=== PATIENT | female | born 1980 | race Caucasian/White ===

== ENCOUNTER 2019-08-11 07:34 | Inpatient (IN) ==
[2019-08-11] MEDS ORDERED: OXYTOCIN 30 UNITS/500 ML BAG IV PRN (08:05)
[2019-08-11] MEDS ORDERED: DINOPROSTONE 10 MG INSERT PV ONE (08:05)
[2019-08-11 08:26] LABS: Hematocrit (blood only) 35.5 % (37-47); Hemoglobin 11.9 g/dL (12.0-16.0); Mean Corpuscular Hemoglobin 28.7 pg (25-34); Mean Corpuscular Volume 85.5 fL (80-100); Mean Platelet Volume 10.8 fL (7.4-10.4); Platelet Count 218 K/uL (130-400); RDW Coefficient of Variation 14.2 % (11.5-14.5); RDW Standard Deviation 43.7 fL (36.4-46.3); Red Blood Count 4.15 M/uL (4.2-5.4); White Blood Count 10.87 K/uL (4.8-10.8)
[2019-08-11 08:31] LABS: Mean Corpuscular Hgb Conc 33.5 g/dL (32-36)
[2019-08-11] MEDS ORDERED: FLUCONAZOLE 50 MG TAB PO STA (08:47)
--- NOTE | 2019-08-11 08:47 | History & Physical Report ---
Date of Service August 11, 2019 Assessment & Plan (1) Post-term , 40-42 weeks of gestation: (2) Large for dates affecting management of mother: 39 yo at 40.3 wks, IOL for postdates VSS Afebrile Polyhydramnios and LGA, [place], 3900+ gr EFW at 37 weeks FS at home WNL, normal 3 Hour OGTTat 28 weeks Plan to check EFW this morning and decide Discussed risks of shoulder dystocia with larger fetus, like brachial plexus injury, clavicle fracture, asphyxia/ hypoxia even Discussed ACOG recommendations of elective Csection with GDM ad EFW of 4500 gr and 5000 gr with no GDM Discussed limitations of US for EFW, 10 % error rate (more or less) estimating weight She understands all and will decide after US for EFW All questions were answered (3) Polyhydramnios affecting in third trimester: History of Present Illness Chief Complaint: induction Primary Care Provider: He Kelly MD Patient is a 39 yo at 40.3 wks who is here for scheduled IOL She has no complaints No ctxs/ LOF/VB/ GONZALEZ/ Change in vision/ RUQ or epigastric pain +FM Her has been complicated by 1) AMA: Panaroma low risk 2) Polyhydramnios and LGA at 37 weeks, EFW at 95 th %ile, 3900+ gr 2) Migraine Allergies Allergy/AdvReac Type Severity Reaction Status Date / Time tetracycline Allergy Intermediate Rash Verified 08/11/19 07:49 Home Medications Home Medications Medication Instructions Recorded Confirmed Type 1 tab PO DAILY 08/02/19 08/11/19 History iron 1 tab PO DAILY 08/02/19 08/11/19 History Patient History Medical History Hx of migraines (~08/09/14) Surgical History H/O wisdom tooth extraction (~09/16/00) Family History Father Stroke Brother Non-Hodgkin lymphoma Social History Preferred Language: Citizen Of [place] Communication Ability: Effective Feed Management Advisor Required: No Beliefs That Will Affect Care: None marital status: Single Current Living Situation: Family Current Living Situation Comment: Lives with daughter and Dean jacobs Other Information That Helps Us Care for You: No Feels Safe at Home: Yes Safety Concerns: Feels Safe At This Time Smoking Status: Never smoker Do You Dip or Chew Tobacco: No ; Second Hand Exposure: No ; Tobacco Cessation Education Requested by Patient: No Hx Alcohol Use: No Hx Substance Use: No OB History in 2004, 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
[2019-08-11] MEDS ORDERED: CALCIUM CARBONATE 500 MG CHEWABLE TAB PO PRN (08:57)
--- NOTE | 2019-08-11 09:38 | Obstetrical Progress Note ---
Date of Service August 11, 2019 Assessment & Plan Admission and Anticipated Discharge Date Admission Date: August 11, 2019 Subjective Patient is back from US EFW 4119 gr, 9 lb 1 oz Discussed above and risk of shoulder dystocia one more time ( see H&P) and risks of Csection which is major surgery After discussion with her and her they decided for trial of vaginal delivery She plans to have epidural for pain Cervidil is placed in posterior fornix and discussed what to expect Continue to monitor Results & Data ([facility]) Vital Signs (Past 12 Hours) Vital Signs Temp Pulse Resp BP 08/11/19 09:28 75 121/69 08/11/19 08:03 36.8 C 86 20 119/72 08/11/19 07:40 86 119/72
[2019-08-11] MEDS ORDERED: ONDANSETRON INJ 2 MG/ML 2 ML VIAL IV PRN ×3 (09:39→21:44)
--- NOTE | 2019-08-11 10:27 | Ultrasound Report ---
ULTRASOUND LIMITED CLINICAL HISTORY: Large for dates. COMPARISON STUDY: No priors. FINDINGS: Real-time, grayscale, and color Doppler sonography of the fetus and gravid uterus is perfor med. There is a single live uterine gestation with an estimated heart rate of 163 beats per minute. P ositioning is cephalic. The amniotic fluid index measures 15 cm. The largest pocket of fluid measures 6.9 cm. Abdominal circumference measures 36.92 cm, corresponding to an estimated age of 40 weeks 6 days. The biparietal diameter measures 9.70 cm, corresponding to an estimated age of 39 weeks 5 days. Head circumference measures 34.73 cm, corresponding to an estimated age of 40 weeks 2 days. Femoral length measures 7.79 cm, corresponding to an estimated age of 39 weeks 6 day. Overall estimated age is 39 weeks 6 days +/-1 week. Estimated weight is 4119 g +/-618 g. IMPRESSION: 1. There is a single live injury gestation as above with an estimated age of 39 weeks 6 days. 2. Note that this does not constitute a dedicated anatomic scan. Dictated: 08/11/2019 9:19 AM Transcribed: 08/11/2019 10:10 AM Ana Rosa [id number] [email or web address] Electronically signed by: Danny Bond M.D. 08/11/2019 10:25 AM
[2019-08-11] MEDS: LACTATED RINGER'S 1,000 ML IV PRN ×2 (13:24→17:15)
[2019-08-11] MEDS: BUTORPHANOL TARTRATE 1 MG/ML VIAL IV PRN ×2 (13:28→16:01)
[2019-08-11] MEDS ORDERED: ePHEDrine sulfate 50 MG/ML AMP ONE ×2 (16:16→21:34)
[2019-08-11] MEDS ORDERED: fentaNYL citrate 100 MCG/2 ML VIAL ONE (16:16)
[2019-08-11] MEDS ORDERED: BUPIVACAINE 0.25% 30 ML VIAL ONE (16:16)
[2019-08-11] MEDS ORDERED: fentaNYL 2MCG/ML ROPIV 1.25MG/ML 100 ML BAG EPI ONE (16:17)
--- NOTE | 2019-08-11 16:21 | Obstetrical Progress Note ---
Date of Service August 11, 2019 Assessment & Plan Admission and Anticipated Discharge Date Admission Date: August 11, 2019 Subjective Patient is reevaluated She has been painful for the last 2 hours, received Stadol but not much help Ctxs q 3 min VSS Afebrile VS; 4-5 cm/ 80%/ -2, SROM'ed, meconium stained fluid, Cervidil is removed FHR 140's with decreased variability ( after Stadol), accels with VE and moderate variability, no decels [place] ctxs 1-3min Plan epidural for pain, monitor closely Results & Data ([facility]) Vital Signs (Past 12 Hours) Vital Signs Temp Pulse Resp BP 08/11/19 16:07 94 H 20 121/70 08/11/19 15:30 20 08/11/19 15:01 83 122/86 08/11/19 15:00 36.5 C 20 08/11/19 12:52 81 124/62 08/11/19 09:28 75 20 121/69 08/11/19 08:03 36.8 C 86 20 119/72 08/11/19 07:40 36.7 C 86 16 119/72
--- NOTE | 2019-08-11 17:44 | Anesthesiology Consultation ---
Date of Service August 11, 2019 Assessment & Plan Chart Review Chart Review: Acceptable Risk for Labor Epidural Consults Requested none History Height/Weight Height: 5 ft 2 in Weight: 80.739 kg Allergies Allergy/AdvReac Type Severity Reaction Status Date / Time tetracycline Allergy Intermediate Rash Verified 08/11/19 07:49 Medications Home Medications Medication Instructions Recorded Confirmed Last Taken 1 tab PO DAILY 08/02/19 08/11/19 08/10/19 12:00 iron 1 tab PO DAILY 08/02/19 08/11/19 08/09/19 12:00 Active Medications Generic Name Dose Route Start Last Admin Trade Name Freq PRN Reason Stop Dose Admin Butorphanol Tartrate 1 mg 08/11/19 09:38 08/11/19 16:01 Stadol IV 09/10/19 09:37 1 mg Q3HWA PRN Administration Pain Lactated Ringer's 1,000 mls @ 150 mls/hr 08/11/19 08:05 08/11/19 17:31 Lr IV 08/13/19 08:04 150 mls/hr .[id number] PRN Infusion L&D Protocol Protocol Past Medical History Medical History Hx of migraines (~08/09/14) Past Family History Family History Father Stroke Brother Non-Hodgkin lymphoma Past Surgical History Surgical History H/O wisdom tooth extraction (~09/16/00) Social History Smoking Status: Never smoker Do You Dip or Chew Tobacco: No Hx Alcohol Use: No Hx Substance Use: No substance use type: does not use Physical Exam Vital Signs Last Vital Signs Temp 36.4 C L 08/11/19 17:00 Pulse 108 H 08/11/19 17:42 Resp 20 08/11/19 17:35 BP 137/68 08/11/19 17:42 Pulse Ox 100 08/11/19 17:39 Testing Laboratory Results 08/11/19 08:14 08/11/19 08:35 POC Glucose 80
[2019-08-11] MEDS ORDERED: fentaNYL 2MCG/ML ROPIV 1.25MG/ML 100 ML BAG EPI PRN (17:45)
[2019-08-11] MEDS ORDERED: NALOXONE HCL 0.4 MG/1 ML VIAL/CARP IV PRN ×2 (17:45→21:44)
[2019-08-11] MEDS ORDERED: NALOXONE HCL 1 MG in SODIUM CHLORIDE 0.9% 1000ML 1,000 ML IV PRN ×2 (17:45→21:44)
[2019-08-11] MEDS ORDERED: DiphenhydrAMINE HCL 50 MG/ML VIAL IV PRN ×2 (17:45→21:44)
[2019-08-11] MEDS ORDERED: ePHEDrine sulfate 50 MG/ML AMP IV PRN ×2 (17:45→21:44)
[2019-08-11] MEDS ORDERED: NALBUPHINE HCL INJ 10 MG/ML AMP IV PRN ×2 (17:45→21:44)
--- NOTE | 2019-08-11 18:17 | Obstetrical Progress Note ---
Date of Service August 11, 2019 Assessment & Plan Admission and Anticipated Discharge Date Admission Date: August 11, 2019 Subjective Patient is reevaluated She received epidural, pain is better but feels pressure VE; 8/ 90%/ 0 FHR early decel to 100's back up to 130's, good variability and accels Continue to monitor Anticipate Results & Data ([facility]) Vital Signs (Past 12 Hours) Vital Signs Temp Pulse Resp BP Pulse Ox 08/11/19 18:09 106 H 100 08/11/19 18:04 100 H 100 08/11/19 17:59 107 H 100 08/11/19 17:57 120 H 149/72 H 08/11/19 17:54 113 H 100 08/11/19 17:49 118 H 100 08/11/19 17:44 114 H 100 08/11/19 17:42 108 H 137/68 08/11/19 17:40 104 H 133/69 08/11/19 17:39 110 H 100 08/11/19 17:38 131/76 08/11/19 17:36 107 H 133/70 08/11/19 17:35 20 08/11/19 17:34 113 H 136/64 100 08/11/19 17:32 103 H 138/68 08/11/19 17:31 100 H 126/69 08/11/19 17:29 98 H 93 08/11/19 17:28 101 H 162/77 H 08/11/19 17:24 101 H 99 08/11/19 17:19 98 H 100 08/11/19 17:14 97 H 99 08/11/19 17:09 89 98 08/11/19 17:04 70 98 08/11/19 17:00 36.4 C L 22 08/11/19 16:59 83 98 08/11/19 16:54 101 H 100 08/11/19 16:49 100 H 100 08/11/19 16:44 98 H 100 08/11/19 16:39 91 H 99 08/11/19 16:34 78 98 08/11/19 16:30 22 08/11/19 16:29 80 99 08/11/19 16:24 76 98 08/11/19 16:07 94 H 20 121/70 08/11/19 15:30 20 08/11/19 15:01 83 122/86 08/11/19 15:00 36.5 C 20 08/11/19 12:52 81 124/62 08/11/19 09:28 75 20 121/69 08/11/19 08:03 36.8 C 86 20 119/72 08/11/19 07:40 36.7 C 86 16 119/72
--- NOTE | 2019-08-11 19:50 | Obstetrical Progress Note ---
Date of Service August 11, 2019 Assessment & Plan Admission and Anticipated Discharge Date Admission Date: August 11, 2019 Subjective Patient felt pressure and wanted to push VE; 10/ head at 0 station, posterior fontanelle at 2 o'clock position, ANA No descent with trial push Patient is tired, pushed on epidural button and wants to rest for a little bit and then start pushing FHR 140's with good variability, occasional early decels with ctxs with quick spontaneous recovery Continue to monitor closely Results & Data ([facility]) Vital Signs (Past 12 Hours) Vital Signs Temp Pulse Resp BP Pulse Ox 08/11/19 19:44 112 H 98 08/11/19 19:39 127 H 100 08/11/19 19:34 115 H 99 08/11/19 19:29 113 H 99 08/11/19 19:28 114 H 129/85 08/11/19 19:24 130 H 98 08/11/19 19:19 127 H 98 08/11/19 19:14 114 H 98 08/11/19 19:13 114 H 137/82 08/11/19 19:09 132 H 98 08/11/19 19:04 120 H 98 08/11/19 19:00 20 08/11/19 18:59 125 H 99 08/11/19 18:58 109 H 133/81 08/11/19 18:54 140 H 97 08/11/19 18:49 134 H 99 08/11/19 18:44 110 H 136/82 100 08/11/19 18:39 139 H 100 08/11/19 18:34 110 H 100 08/11/19 18:30 20 08/11/19 18:29 95 H 99 08/11/19 18:28 121 H 134/87 08/11/19 18:24 105 H 100 08/11/19 18:19 111 H 100 08/11/19 18:14 115 H 100 08/11/19 18:09 106 H 100 08/11/19 18:04 100 H 100 08/11/19 17:59 107 H 100 08/11/19 17:57 120 H 149/72 H 08/11/19 17:54 113 H 100 08/11/19 17:49 118 H 100 08/11/19 17:44 114 H 100 08/11/19 17:42 108 H 137/68 08/11/19 17:40 104 H 133/69 08/11/19 17:39 110 H 100 08/11/19 17:38 131/76 08/11/19 17:36 107 H 133/70 08/11/19 17:35 20 08/11/19 17:34 113 H 136/64 100 08/11/19 17:32 103 H 138/68 08/11/19 17:31 100 H 126/69 08/11/19 17:29 98 H 93 08/11/19 17:28 101 H 162/77 H 08/11/19 17:24 101 H 99 08/11/19 17:19 98 H 100 08/11/19 17:14 97 H 99 08/11/19 17:09 89 98 08/11/19 17:04 70 98 08/11/19 17:00 36.4 C L 22 08/11/19 16:59 83 98 08/11/19 16:54 101 H 100 08/11/19 16:49 100 H 100 08/11/19 16:44 98 H 100 08/11/19 16:39 91 H 99 08/11/19 16:34 78 98 08/11/19 16:30 22 08/11/19 16:29 80 99 08/11/19 16:24 76 98 08/11/19 16:07 94 H 20 121/70 08/11/19 15:30 20 08/11/19 15:01 83 122/86 08/11/19 15:00 36.5 C 20 08/11/19 12:52 81 124/62 08/11/19 09:28 75 20 121/69 08/11/19 08:03 36.8 C 86 20 119/72
[2019-08-11] MEDS ORDERED: CEFAZOLIN 2000MG 2,000 MG/15 ML SYR IV SCH (20:00)
--- NOTE | 2019-08-11 20:10 | Obstetrical Progress Note ---
Date of Service August 11, 2019 Assessment & Plan Admission and Anticipated Discharge Date Admission Date: August 11, 2019 Subjective FHR had deceleration to 90's for 4 minutes with heavy VB Long ctxs lasted for 2 minutes and then another decel after next ctxs VE unchanged with dark red bleeding Suspected abruption, presenting part high and suspected macrosomia Recommended emergent delivery with Csection She agreed Understands it is a major surgery with risks and signed an informed consent Results & Data ([facility]) Vital Signs (Past 12 Hours) Vital Signs Temp Pulse Resp BP Pulse Ox 08/11/19 20:04 156 H 100 08/11/19 19:59 157 H 76 L 08/11/19 19:58 137 H 130/78 08/11/19 19:54 147 H 100 08/11/19 19:49 116 H 99 08/11/19 19:44 112 H 98 08/11/19 19:39 127 H 100 08/11/19 19:34 115 H 99 08/11/19 19:29 113 H 99 08/11/19 19:28 114 H 129/85 08/11/19 19:24 130 H 98 08/11/19 19:19 127 H 98 08/11/19 19:14 114 H 98 08/11/19 19:13 114 H 137/82 08/11/19 19:09 132 H 98 08/11/19 19:04 120 H 98 08/11/19 19:00 20 08/11/19 18:59 125 H 99 08/11/19 18:58 109 H 133/81 08/11/19 18:54 140 H 97 08/11/19 18:49 134 H 99 08/11/19 18:44 110 H 136/82 100 08/11/19 18:39 139 H 100 08/11/19 18:34 110 H 100 08/11/19 18:30 20 08/11/19 18:29 95 H 99 08/11/19 18:28 121 H 134/87 08/11/19 18:24 105 H 100 08/11/19 18:19 111 H 100 08/11/19 18:14 115 H 100 08/11/19 18:09 106 H 100 08/11/19 18:04 100 H 100 08/11/19 17:59 107 H 100 08/11/19 17:57 120 H 149/72 H 08/11/19 17:54 113 H 100 05 17:49 118 H 100 08/11/19 17:44 114 H 100 08/11/19 17:42 108 H 137/68 08/11/19 17:40 104 H 133/69 08/11/19 17:39 110 H 100 08/11/19 17:38 131/76 08/11/19 17:36 107 H 133/70 08/11/19 17:35 20 08/11/19 17:34 113 H 136/64 100 08/11/19 17:32 103 H 138/68 08/11/19 17:31 100 H 126/69 08/11/19 17:29 98 H 93 08/11/19 17:28 101 H 162/77 H 08/11/19 17:24 101 H 99 08/11/19 17:19 98 H 100 08/11/19 17:14 97 H 99 08/11/19 17:09 89 98 08/11/19 17:04 70 98 08/11/19 17:00 36.4 C L 22 08/11/19 16:59 83 98 08/11/19 16:54 101 H 100 08/11/19 16:49 100 H 100 08/11/19 16:44 98 H 100 08/11/19 16:39 91 H 99 08/11/19 16:34 78 98 08/11/19 16:30 22 08/11/19 16:29 80 99 08/11/19 16:24 76 98 08/11/19 16:07 94 H 20 121/70 08/11/19 15:30 20 08/11/19 15:01 83 122/86 05 15:00 36.5 C 20 08/11/19 12:52 81 124/62 05 09:28 75 20 121/69
[2019-08-11] MEDS ORDERED: CITRIC ACID/SODIUM CITRATE 15 ML UDC ONE (20:12)
[2019-08-11] MEDS ORDERED: LACTATED RINGER'S 1,000 ML IV SCH (20:15)
[2019-08-11 20:26] LABS: Hematocrit (blood only) 36.5 % (37-47); Hemoglobin 12.1 g/dL (12.0-16.0); Mean Corpuscular Hemoglobin 28.8 pg (25-34); Mean Corpuscular Hgb Conc 33.2 g/dL (32-36); Mean Corpuscular Volume 86.9 fL (80-100); Mean Platelet Volume 11.1 fL (7.4-10.4); Platelet Count 243 K/uL (130-400); RDW Coefficient of Variation 14.3 % (11.5-14.5); RDW Standard Deviation 44.8 fL (36.4-46.3); White Blood Count 24.68 K/uL (4.8-10.8)
[2019-08-11 20:44] LABS: Basophils # (auto) 0.03 K/uL (0-0.2); Basophils % (auto) 0.1 %; Immature Granulocytes # (auto) 0.28 K/uL (0.00-0.02); Immature Granulocytes % (auto) 1.1 %; Lymphocytes # (auto) 1.21 K/uL (1.2-3.4); Lymphocytes % (auto) 4.9 %; Monocytes # (auto) 1.61 K/uL (0.11-0.59); Monocytes % (auto) 6.5 %; Neutrophils # (auto) 21.55 K/uL (1.4-6.5); Neutrophils % (auto) 87.4 %
[2019-08-11 20:54] LABS: Fibrinogen 427 mg/dl (184-400); INR 0.9 (0.9-1.1); Partial Thromboplastin Time 26.8 Seconds (21.0-31.0)
[2019-08-11] MEDS ORDERED: TERBUTALINE SULFATE 1 MG/ML VIAL ONE (20:54)
[2019-08-11] MEDS ORDERED: CEFAZOLIN 250 MG/ML 1 GM VIAL ONE (21:13)
[2019-08-11] MEDS ORDERED: OXYTOCIN 10 UNITS/ML VIAL ONE (21:13)
[2019-08-11] MEDS ORDERED: LIDOCAINE/EPINEPHRINE 2% 1:200,000 20 ML SDV ONE (21:13)
[2019-08-11] MEDS ORDERED: PHENYLEPHRINE 100MCG/ML 5ML SYR ONE (21:13)
[2019-08-11] MEDS ORDERED: METHYLERGONOVINE MALEATE 0.2 MG/ML AMP ONE (21:14)
[2019-08-11] MEDS ORDERED: MoRPHine SULFATE PF 1 MG/ML 10 ML AMP/VIAL ONE (21:14)
[2019-08-11] MEDS ORDERED: ONDANSETRON INJ 2 MG/ML 2 ML VIAL ONE (21:14)
[2019-08-11] MEDS ORDERED: MAGNESIUM HYDROXIDE SUSP 30 ML UDC PO PRN (21:21)
[2019-08-11] MEDS ORDERED: HYDROCORTISONE ACETATE 25 MG SUPP PR PRN (21:21)
[2019-08-11] MEDS ORDERED: BENZOCAINE 20% AER SPR 82.5 GM CAN EXT PRN (21:21)
[2019-08-11] MEDS ORDERED: SUPERCREAM 0.870% 15 GM JAR EXT PRN (21:21)
[2019-08-11] MEDS ORDERED: SENNA 8.6 MG TAB PO PRN (21:21)
[2019-08-11] MEDS ORDERED: DIPHTHERIA/TETANUS/PERTUSSIS 0.5 ML SYR/VIAL IM ONE (21:21)
[2019-08-11] MEDS ORDERED: OXYTOCIN 40 UNITS in LACTATED RINGER'S 1,000 ML IV SCH (21:30)
--- NOTE | 2019-08-11 21:37 | Anesthesia Procedure Note ---
Date of Service August 11, 2019 Anesthesia Post Epidural Note Vital Signs Vital Signs: Temp Pulse Resp BP Pulse Ox 36.4 C L 133 H 20 136/56 L 97 08/11/19 17:00 08/11/19 21:32 08/11/19 19:00 08/11/19 21:16 08/11/19 21:32 Notes Mental Status: alert / awake / arousable Nausea / Vomiting: adequately controlled Pain: adequately controlled Airway Patency, RR, SpO2: stable & adequate BP & HR: stable & adequate Hydration State: stable & adequate Neuraxial Anesthesia: was administered and sensory block is resolving Anesthetic Complications: no major complications apparent and Pt Satisfied with anesthetic care Epidural: Removed without complications and With tip intact
--- NOTE | 2019-08-11 21:43 | Post Operative Brief Note ---
Immediate Post Op Note v1 Date of Surgery August 11, 2019 Pre & Post Diagnosis Operation Date: 08/11/19 20:00 Pre-Op Diagnosis: Active Vaginal Bleeding, Possible Abruption, Suspected Macrosomia Post-Op Diagnosis: Active Vaginal Bleeding, Possible Abruption, Suspected Macrosomia I identified the patient and participated in the time-out.: Yes Procedure Operation Date: 08/11/19 20:00 Actual Procedures p Section in LD delivery of live female child at 2027 - Samuel Muro MD Surgeon Samuel Mantilla MD Batch Unit Treater Dr Crabtree Estimated Blood Loss 800 Findings Consistent with Post-Op Diagnosis Drains Hurst Catheter (150 ml) Anesthesia Type General/Epidural Complications none Disposition Accompanied Patient To Recovery: Yes Disposition: L&D
--- NOTE | 2019-08-11 21:43 | Anesthesiology Progress Note ---
Date of Service August 11, 2019 Anesthesia Post Procedure Vital Signs Vital Signs: Temp Pulse Resp BP Pulse Ox 08/11/19 21:37 124 H 118/60 98 08/11/19 21:32 133 H 97 08/11/19 21:27 137 H 99 08/11/19 21:22 133 H 98 08/11/19 21:17 126 H 98 08/11/19 21:16 120 H 136/56 L 08/11/19 21:12 124 H 98 08/11/19 21:06 136 H 99 08/11/19 21:05 126 H 124/80 08/11/19 20:10 148 H 99 08/11/19 20:04 156 H 100 08/11/19 19:59 157 H 76 L 08/11/19 19:58 137 H 130/78 08/11/19 19:54 147 H 100 08/11/19 19:49 116 H 99 08/11/19 19:44 112 H 98 08/11/19 19:39 127 H 100 08/11/19 19:34 115 H 99 08/11/19 19:29 113 H 99 08/11/19 19:28 114 H 129/85 08/11/19 19:24 130 H 98 08/11/19 19:19 127 H 98 08/11/19 19:14 114 H 98 08/11/19 19:13 114 H 137/82 08/11/19 19:09 132 H 98 08/11/19 19:04 120 H 98 08/11/19 19:00 20 08/11/19 18:59 125 H 99 08/11/19 18:58 109 H 133/81 08/11/19 18:54 140 H 97 08/11/19 18:49 134 H 99 08/11/19 18:44 110 H 136/82 100 08/11/19 18:39 139 H 100 08/11/19 18:34 110 H 100 08/11/19 18:30 20 08/11/19 18:29 95 H 99 08/11/19 18:28 121 H 134/87 08/11/19 18:24 105 H 100 08/11/19 18:19 111 H 100 08/11/19 18:14 115 H 100 08/11/19 18:09 106 H 100 08/11/19 18:04 100 H 100 08/11/19 17:59 107 H 100 08/11/19 17:57 120 H 149/72 H 08/11/19 17:54 113 H 100 08/11/19 17:49 118 H 100 08/11/19 17:44 114 H 100 08/11/19 17:42 108 H 137/68 08/11/19 17:40 104 H 133/69 08/11/19 17:39 110 H 100 08/11/19 17:38 131/76 08/11/19 17:36 107 H 133/70 08/11/19 17:35 20 08/11/19 17:34 113 H 136/64 100 08/11/19 17:32 103 H 138/68 08/11/19 17:31 100 H 126/69 08/11/19 17:29 98 H 93 08/11/19 17:28 101 H 162/77 H 08/11/19 17:24 101 H 99 08/11/19 17:19 98 H 100 08/11/19 17:14 97 H 99 08/11/19 17:09 89 98 08/11/19 17:04 70 98 08/11/19 17:00 36.4 C L 22 08/11/19 16:59 83 98 08/11/19 16:54 101 H 100 08/11/19 16:49 100 H 100 08/11/19 16:44 98 H 100 08/11/19 16:39 91 H 99 08/11/19 16:34 78 98 08/11/19 16:30 22 08/11/19 16:29 80 99 08/11/19 16:24 76 98 08/11/19 16:07 94 H 20 121/70 08/11/19 15:30 20 08/11/19 15:01 83 122/86 08/11/19 15:00 36.5 C 20 08/11/19 12:52 81 124/62 08/11/19 09:28 75 20 121/69 08/11/19 08:03 36.8 C 86 20 119/72 08/11/19 07:40 36.7 C 86 16 119/72 Transfer of Care Handoff Completed per policy Notes Mental Status: alert / awake / arousable and participated in evaluation Patient Amnestic to Procedure: Yes Nausea / Vomiting: adequately controlled Pain: adequately controlled Airway Patency, RR, SpO2: stable & adequate BP & HR: stable & adequate Hydration State: stable & adequate Neuraxial Anesthesia: was administered and sensory block is resolving Anesthetic Complications: no major complications apparent
[2019-08-11] MEDS ORDERED: MEPERIDINE HCL 25 MG/ML CARP/VIAL IV PRN (21:44)
[2019-08-11] MEDS ORDERED: MoRPHine SULFATE PF 1 MG/ML 10 ML AMP/VIAL INT SPINAL ONE (21:44)
[2019-08-11] MEDS ORDERED: PROMETHAZINE HCL 25 MG in SODIUM CHLORIDE 0.9% 50 ML IV PRN (21:44)
[2019-08-11] MEDS ORDERED: MoRPHine SULFATE 2 MG/ML CARP IV PRN (21:44)
[2019-08-11] MEDS ORDERED: NALOXONE HCL 0.08 MG in SYRINGE 1.8 ML IV PRN (21:44)
[2019-08-11] MEDS ORDERED: LACTATED RINGER'S 500 ML IV PRN (21:44)
[2019-08-11] MEDS ORDERED: HYDROmorphone INJ 0.5 MG/0.5 ML SYR IV PRN (21:44)
[2019-08-11] MEDS ORDERED: NO NARCOTICS OR SEDATIVES SCH (21:45)
[2019-08-11] MEDS ORDERED: DC INTRASPINAL MORPHINE SCH (21:45)
[2019-08-11] MEDS ORDERED: SODIUM CHLORIDE 0.9% 1000ML 1,000 ML IV SCH (21:45)
[2019-08-11] MEDS ORDERED: KETOROLAC 30 MG/ML VIAL ONE (22:23)
[2019-08-11] MEDS ORDERED: TERBUTALINE SULFATE 1 MG/ML VIAL SQ ONE (22:29)
[2019-08-11] MEDS: KETOROLAC 30 MG/ML VIAL IV PRN (22:33)
[2019-08-11] MEDS ORDERED: OXYTOCIN 10 UNITS/ML VIAL IM ONE (22:41)
[2019-08-11] MEDS ORDERED: METHYLERGONOVINE MALEATE 0.2 MG/ML AMP IM STA (22:41)
--- NOTE | 2019-08-11 22:49 | Obstetrical Progress Note ---
Date of Service August 11, 2019 Assessment & Plan Admission and Anticipated Discharge Date Admission Date: August 11, 2019 Subjective Postop check Patient is seen and examined Feels better, no complaints Pain is under control with meds No CP/ SOB/ Dizziness/ N&V/ VB/ Leg pain Not OOB yet Tolerating clears Explained about the surgery and findings Vital Signs Temp Pulse Resp BP Pulse Ox 08/11/19 22:42 105 H 100 08/11/19 22:37 106 H 99 08/11/19 22:36 114 H 120/65 08/11/19 22:32 118 H 100 08/11/19 22:27 111 H 100 08/11/19 22:26 112 H 123/64 08/11/19 22:22 113 H 100 08/11/19 22:17 116 H 100 08/11/19 22:16 117 H 125/72 08/11/19 22:12 118 H 100 08/11/19 22:07 126 H 100 08/11/19 22:06 126 H 122/70 08/11/19 22:02 123 H 100 08/11/19 21:57 129 H 99 08/11/19 21:56 127 H 117/66 08/11/19 21:52 131 H 99 08/11/19 21:47 116 H 99 08/11/19 21:46 126 H 121/61 08/11/19 21:42 131 H 98 08/11/19 21:37 124 H 118/60 98 08/11/19 21:32 133 H 97 08/11/19 21:27 137 H 99 08/11/19 21:22 133 H 98 08/11/19 21:17 126 H 98 08/11/19 21:16 120 H 136/56 L 08/11/19 21:12 124 H 98 08/11/19 21:06 136 H 99 08/11/19 21:05 126 H 124/80 08/11/19 20:10 148 H 99 08/11/19 20:04 156 H 100 08/11/19 20:00 22 08/11/19 19:59 157 H 76 L 08/11/19 19:58 137 H 130/78 08/11/19 19:54 147 H 100 08/11/19 19:49 116 H 99 08/11/19 19:44 112 H 98 08/11/19 19:39 127 H 100 051420 19:34 115 H 99 05/1420 19:30 20 05 19:29 113 H 99 0520 19:28 114 H 129/85 0520 19:24 130 H 98 0520 19:19 127 H 98 0520 19:14 114 H 98 051420 19:13 114 H 137/82 05 19:09 132 H 98 08/11/19 19:04 120 H 98 05 19:00 20 05 18:59 125 H 99 05 18:58 109 H 133/81 05 18:54 140 H 97 05 18:49 134 H 99 05 18:44 110 H 136/82 100 08/11/19 18:39 139 H 100 05 18:34 110 H 100 05 18:30 20 08/11/19 18:29 95 H 99 05 18:28 121 H 134/87 05 18:24 105 H 100 05 18:19 111 H 100 05 18:14 115 H 100 05 18:09 106 H 100 05 18:04 100 H 100 05 17:59 107 H 100 08/11/19 17:57 120 H 149/72 H 05 17:54 113 H 100 05 17:49 118 H 100 05 17:44 114 H 100 05 17:42 108 H 137/68 0520 17:40 104 H 133/69 0520 17:39 110 H 100 05/1420 17:38 131/76 05/1420 17:36 107 H 133/70 0520 17:35 20 05 17:34 113 H 136/64 100 0520 17:32 103 H 138/68 051420 17:31 100 H 126/69 05/1420 17:29 98 H 93 051420 17:28 101 H 162/77 H 05 17:24 101 H 99 0520 17:19 98 H 100 08/11/19 17:14 97 H 99 08/11/19 17:09 89 98 08/11/19 17:04 70 98 08/11/19 17:00 36.4 C L 22 08/11/19 16:59 83 98 08/11/19 16:54 101 H 100 08/11/19 16:49 100 H 100 08/11/19 16:44 98 H 100 08/11/19 16:39 91 H 99 08/11/19 16:34 78 98 08/11/19 16:30 22 08/11/19 16:29 80 99 08/11/19 16:24 76 98 08/11/19 16:07 94 H 20 121/70 08/11/19 15:30 20 08/11/19 15:01 83 122/86 08/11/19 15:00 36.5 C 20 08/11/19 12:52 81 124/62 Pulse has been coming down Urine was blood tinged after surgery now clearing up, yellow Lab Results 08/11/19 08/11/19 08/11/19 Range/Units 08:14 08:14 08:35 WBC 10.87 H (4.8-10.8) K/uL RBC 4.15 L (4.2-5.4) M/uL Hgb 11.9 L (12.0-16.0) g/dL Hct 35.5 L (37-47) % MCV 85.5 (80-100) fL MCH 28.7 (25-34) pg MCHC 33.5 (32-36) g/dL RDW Std Deviation 43.7 (36.4-46.3) fL RDW Coeff of Kimberley 14.2 (11.5-14.5) % Plt Count 218 (130-400) K/uL MPV 10.8 H (7.4-10.4) fL Immature Gran % (Auto) % Neut % (Auto) % Lymph % (Auto) % [place] % (Auto) % Eos % (Auto) % Baso % (Auto) % Immature Gran # (Auto) (0.00-0.02) K/uL Neut # (Auto) (1.4-6.5) K/uL Lymph # (Auto) (1.2-3.4) K/uL [place] # (Auto) (0.11-0.59) K/uL Eos # (Auto) (0-0.5) K/uL Baso # (Auto) (0-0.2) K/uL PT (9.0-12.0) Seconds INR (0.9-1.1) APTT (21.0-31.0) Seconds PTT Ratio Fibrinogen (184-400) mg/dl POC Glucose 80 (70-99) mg/dl Hepatitis C Antibody Neg (Neg) 08/11/19 08/11/19 08/11/19 Range/Units 17:48 20:16 20:16 WBC 24.68 H D (4.8-10.8) K/uL RBC 4.20 (4.2-5.4) M/uL Hgb 12.1 (12.0-16.0) g/dL Hct 36.5 L (37-47) % MCV 86.9 (80-100) fL MCH 28.8 (25-34) pg MCHC 33.2 (32-36) g/dL RDW Std Deviation 44.8 (36.4-46.3) fL RDW Coeff of Kimberley 14.3 (11.5-14.5) % Plt Count 243 (130-400) K/uL MPV 11.1 H (7.4-10.4) fL Immature Gran % (Auto) 1.1 % Neut % (Auto) 87.4 % Lymph % (Auto) 4.9 % [place] % (Auto) 6.5 % Eos % (Auto) 0.0 % Baso % (Auto) 0.1 % Immature Gran # (Auto) 0.28 H (0.00-0.02) K/uL Neut # (Auto) 21.55 H (1.4-6.5) K/uL Lymph # (Auto) 1.21 (1.2-3.4) K/uL [place] # (Auto) 1.61 H (0.11-0.59) K/uL Eos # (Auto) 0.00 (0-0.5) K/uL Baso # (Auto) 0.03 (0-0.2) K/uL PT 10.0 (9.0-12.0) Seconds INR 0.9 (0.9-1.1) APTT 26.8 (21.0-31.0) Seconds PTT Ratio 1.0 Fibrinogen 427 H (184-400) mg/dl POC Glucose 105 H (70-99) mg/dl Hepatitis C Antibody (Neg) PE: General: Alert, orientedx3, NAD CVS: S1S2 RRR Lungs: CTAB Abd: soft, ND, BS+, fundus firm below U, Dressing C/D/I Minimal lochia Ext: NT, no edema, SCD's on AP: 39 yo female s/p Primary emergency Csection , pod#0 VSS Afebrile doing well Continue to monitor, postop care Results & Data ([facility]) Vital Signs (Past 12 Hours) Vital Signs Temp Pulse Resp BP Pulse Ox 08/11/19 22:42 105 H 100 08/11/19 22:37 106 H 99 08/11/19 22:36 114 H 120/65 08/11/19 22:32 118 H 100 08/11/19 22:27 111 H 100 08/11/19 22:26 112 H 123/64 08/11/19 22:22 113 H 100 08/11/19 22:17 116 H 100 08/11/19 22:16 117 H 125/72 08/11/19 22:12 118 H 100 08/11/19 22:07 126 H 100 08/11/19 22:06 126 H 122/70 08/11/19 22:02 123 H 100 08/11/19 21:57 129 H 99 08/11/19 21:56 127 H 117/66 08/11/19 21:52 131 H 99 08/11/19 21:47 116 H 99 08/11/19 21:46 126 H 121/61 08/11/19 21:42 131 H 98 08/11/19 21:37 124 H 118/60 98 08/11/19 21:32 133 H 97 08/11/19 21:27 137 H 99 08/11/19 21:22 133 H 98 08/11/19 21:17 126 H 98 08/11/19 21:16 120 H 136/56 L 08/11/19 21:12 124 H 98 08/11/19 21:06 136 H 99 08/11/19 21:05 126 H 124/80 08/11/19 20:10 148 H 99 08/11/19 20:04 156 H 100 05 20:00 22 08/11/19 19:59 157 H 76 L 08/11/19 19:58 137 H 130/78 08/11/19 19:54 147 H 100 08/11/19 19:49 116 H 99 08/11/19 19:44 112 H 98 08/11/19 19:39 127 H 100 08/11/19 19:34 115 H 99 08/11/19 19:30 20 08/11/19 19:29 113 H 99 08/11/19 19:28 114 H 129/85 08/11/19 19:24 130 H 98 08/11/19 19:19 127 H 98 08/11/19 19:14 114 H 98 08/11/19 19:13 114 H 137/82 08/11/19 19:09 132 H 98 08/11/19 19:04 120 H 98 08/11/19 19:00 20 08/11/19 18:59 125 H 99 08/11/19 18:58 109 H 133/81 08/11/19 18:54 140 H 97 08/11/19 18:49 134 H 99 08/11/19 18:44 110 H 136/82 100 08/11/19 18:39 139 H 100 08/11/19 18:34 110 H 100 08/11/19 18:30 20 08/11/19 18:29 95 H 99 08/11/19 18:28 121 H 134/87 08/11/19 18:24 105 H 100 08/11/19 18:19 111 H 100 08/11/19 18:14 115 H 100 08/11/19 18:09 106 H 100 08/11/19 18:04 100 H 100 08/11/19 17:59 107 H 100 08/11/19 17:57 120 H 149/72 H 05 17:54 113 H 100 05 17:49 118 H 100 05 17:44 114 H 100 05 17:42 108 H 137/68 05 17:40 104 H 133/69 05 17:39 110 H 100 05 17:38 131/76 05 17:36 107 H 133/70 05 17:35 20 08/11/19 17:34 113 H 136/64 100 08/11/19 17:32 103 H 138/68 08/11/19 17:31 100 H 126/69 08/11/19 17:29 98 H 93 08/11/19 17:28 101 H 162/77 H 08/11/19 17:24 101 H 99 08/11/19 17:19 98 H 100 08/11/19 17:14 97 H 99 08/11/19 17:09 89 98 08/11/19 17:04 70 98 08/11/19 17:00 36.4 C L 22 08/11/19 16:59 83 98 08/11/19 16:54 101 H 100 08/11/19 16:49 100 H 100 08/11/19 16:44 98 H 100 08/11/19 16:39 91 H 99 08/11/19 16:34 78 98 08/11/19 16:30 22 08/11/19 16:29 80 99 08/11/19 16:24 76 98 08/11/19 16:07 94 H 20 121/70 08/11/19 15:30 20 08/11/19 15:01 83 122/86 08/11/19 15:00 36.5 C 20 08/11/19 12:52 81 124/62
[2019-08-11 23:46] LABS: Appearance Urine Cloudy (Clear); Bilirubin Urine Negative (Negative); Blood Urine 3+ (Negative); Color Urine Yellow; Glucose Urine UA Negative (Negative); Ketones Urine 3+ (Negative); Leukocyte Esterase Urine Trace (Negative); Nitrite Urine Negative (Negative); Protein Urine 1+ (Negative); Specific Gravity Urine >= 1.030 (1.000-1.030); Urobilinogen Urine Negative (Negative); pH Urine 5.5 (4.5-7.5)
--- NOTE | 2019-08-11 23:54 | Operative Report (OR) ---
DATE OF OPERATION: 08/11/2019 PREOPERATIVE DIAGNOSES: The patient is a 39-year-old G2, P1-0-0-1, at 40 weeks and 3 days of gestation, admitted for induction of labor for postdates, active vaginal bleeding in second phase of labor, suspicious for abruption of placenta, remote from delivery and suspected macrosomia. POSTOPERATIVE DIAGNOSES: The patient is a 39-year-old G2, P1-0-0-1, at 40 weeks and 3 days of gestation, admitted for induction of labor for postdates, active vaginal bleeding in second phase of labor, suspicious for abruption of placenta, remote from delivery and suspected macrosomia and blood in amniotic cavity. PROCEDURE: Primary low transverse with Pfannenstiel skin incision. SURGEON: Samuel Mantilla MD. INTERIOR PANELER: Dr. Crabtree. ESTIMATED BLOOD LOSS: 800 mL DRAINS: Hurst catheter drained 150 mL of urine. ANESTHESIA: Epidural. ANESTHESIOLOGIST: Dr. Khan. COMPLICATIONS: None. FINDINGS: Baby was a viable female , delivered at 8 p.m. Apgars were 8/9, weight was 4160 grams. Baby was in cephalic presentation. There was blood and blood clots in the intra-amniotic cavity. The placenta appeared to be normal. Maternal findings, normal uterus, fallopian tubes and ovaries. DESCRIPTION OF PROCEDURE: The patient was taken to the operating room where epidural anesthesia was given to be adequate. She was placed in dorsal supine position with a leftward tilt. She was prepared and draped in usual sterile fashion. Pfannenstiel skin incision was made and carried through to the underlying layer of fascia with the Bovie. Fascia was incised in the midline and extended laterally with the help of [place] scissors. Upper aspect of the fascial incision was then elevated and dissected off from the underlying rectus muscles and then the lower aspect of the rectus fascia was elevated and dissected sharply from the underlying rectus muscles with the [place]aga scissors. The rectus muscles were already and the peritoneum was identified, entered bluntly with fingers. Peritoneal incision was extended superiorly and inferiorly with good visualization of the bladder. Bladder blade was inserted. Vesicouterine peritoneum was identified, grasped with pickups, entered sharply with Metzenbaum scissors. Bladder flap was created digitally and bladder blade was reinserted. Lower uterine segment was incised in transverse fashion, incision was extended laterally with the help of fingers. Membranes were ruptured and bloody amniotic fluid was obtained with blood clots. Baby head was brought to the incision, delivered without difficulty. Shoulders were delivered with minimal traction. Mouth and nose were suctioned. Cord was clamped x2 and cut and baby was handed to the waiting pediatric team and placenta was delivered manually as intact and complete. It appeared to be normal. No blood clots were found under the placenta, but the amniotic fluid was bloody and with clots. Then uterus was exteriorized, cleared of all clots and debris. Uterus was massaged and then IV Pitocin was started and 10 units of Pitocin was injected into the myometrium. Uterus became firmer and its color was normal and pink. The incision was repaired with 0 Vicryl in a running locked fashion and a second layer was placed with again 0 Vicryl in a running locked fashion imbricating the first layer and an excellent hemostasis was achieved. Cul-de-sac was cleaned from clots and irrigated with warm normal saline and suctioned. Incision was checked to be hemostatic again. Uterus was returned to the abdomen and pelvis was irrigated with warm normal saline and suctioned. Incision was checked to be hemostatic again. Parietal peritoneum was reapproximated with 0 Vicryl in a running fashion. Rectus muscles were reapproximated with the same suture in a running fashion and under the fascia and over the rectus muscles were hemostatic and the rectus fascia was reapproximated with 0 Vicryl starting from both corners meeting in the midline. Subcuticular fat tissue was brought together with 3-0 Vicryl in a running fashion. Skin was closed with 4-0 Monocryl in a subcuticular fashion. The patient tolerated the procedure well. Sponge, lap, needle count was correct x3. She was given 2 grams of cefazolin before surgery. She was taken to labor and delivery in stable condition. No complications happened. I and Dr. Crabtree was present during whole procedure. I attest to the content of the Intraoperative Record and any orders documented therein. Any exceptions are noted below. IRAM
[2019-08-11 23:55] LABS: Calcium Oxalate Crystals Urine Present (None Prsent); RBC Urine >30 /hpf (0-4)
[2019-08-11 23:56] LABS: Bacteria Urine 1+ (Negative)
[2019-08-11 23:57] LABS: Epithelial Cell Urine 0-5 /lpf (0-5)
[2019-08-12] MEDS ORDERED: CEFAZOLIN 2000MG 2,000 MG/15 ML SYR IV ONE (04:00)
[2019-08-12] MEDS: OXYTOCIN 20 UNITS in LACTATED RINGER'S 1,000 ML IV SCH ×2 (05:50→06:32)
[2019-08-12] MEDS ORDERED: OXYTOCIN 20 UNITS in D5W AND LACTATED RINGERS 1,000 ML IV SCH (06:00)
[2019-08-12] MEDS ORDERED: CITRIC ACID/SODIUM CITRATE 15 ML UDC PO SCH (06:00)
[2019-08-12 06:26] LABS: Hematocrit (blood only) 26.9 % (37-47); Hemoglobin 9.1 g/dL (12.0-16.0); Mean Corpuscular Hemoglobin 29.1 pg (25-34); Mean Corpuscular Hgb Conc 33.8 g/dL (32-36); Mean Corpuscular Volume 85.9 fL (80-100); Mean Platelet Volume 10.6 fL (7.4-10.4); Platelet Count 177 K/uL (130-400); RDW Coefficient of Variation 14.4 % (11.5-14.5); RDW Standard Deviation 44.9 fL (36.4-46.3); Red Blood Count 3.13 M/uL (4.2-5.4); White Blood Count 17.76 K/uL (4.8-10.8)
[2019-08-12 07:08] LABS: Basophils # (auto) 0.01 K/uL (0-0.2); Basophils % (auto) 0.1 %; Eosinophils # (auto) 0.01 K/uL (0-0.5); Eosinophils % (auto) 0.1 %; Immature Granulocytes % (auto) 0.6 %; Lymphocytes % (auto) 7.3 %; Monocytes # (auto) 1.09 K/uL (0.11-0.59); Monocytes % (auto) 6.1 %; Neutrophils # (auto) 15.25 K/uL (1.4-6.5); Neutrophils % (auto) 85.8 %
[2019-08-12] MEDS: SIMETHICONE 80 MG CHEW PO SCH ×4 (08:58→19:48)
[2019-08-12] MEDS: KETOROLAC 30 MG/ML VIAL IV PRN (08:58)
[2019-08-12] MEDS: PRENATAL VITAMIN 1 TAB PO SCH (08:58)
[2019-08-12] MEDS: DOCUSATE SODIUM 100 MG CAP PO SCH ×2 (08:58→19:48)
[2019-08-12] MEDS: FERROUS SULFATE 325 MG TAB PO SCH (08:58)
--- NOTE | 2019-08-12 10:19 | Obstetrical Progress Note ---
Date of Service August 12, 2019 Assessment & Plan (1) delivery delivered: POD #1 pt doing well No complaints advance to day 31 care Subjective Ambulation: ambulating normally Voiding: no voiding problems Passing Gas:: Yes Diet Tolerance:: clear liquids Lochia:: Small Feeding Type:: breast feeding Review of Systems All systems reviewed & are unremarkable except as noted in HPI & below Physical Exam Constitutional WD/WN, vitals as above well developed and well nourished Eyes PERRL, conjunctivae normal, anicteric sclerae ENMT external ear and nose normal, oropharynx normal Neck trachea midline, no thyromegaly Respiratory normal respiratory effort, lungs clear to auscultation Cardiovascular RRR, no murmur, no edema Chest (Breasts) normal inspection/palpation of breasts Gastrointestinal (Abdomen) normal bowel sounds, soft, nontender, no hepatosplenomegaly Musculoskeletal no cyanosis or clubbing, extremities motor strength 5/5 Skin no rashes, warm and dry + incision (Clean,dry and intact) Neurologic patellar DTR's 2+ bilat, sensation intact Psychiatric A+Ox3, euthymic affect Genitourinary normal external appearance Lymphatic no cervical or axillary lymphadenopathy Results & Data Vital Signs (Past 12 Hours) Vital Signs Temp Pulse Pulse Resp BP BP Pulse Ox 08/12/19 06:02 16 98 08/12/19 05:10 16 98 08/12/19 04:45 16 97 08/12/19 03:50 37.0 C 90 16 107/66 98 08/12/19 02:15 14 97 08/12/19 01:18 16 97 08/11/19 23:45 36.8 C 93 H 16 118/75 98 08/11/19 23:27 108 H 100 08/11/19 23:26 113 H 118/60 08/11/19 23:22 111 H 98 08/11/19 23:17 132 H 99 08/11/19 23:16 157 H 116/63 08/11/19 23:15 18 08/11/19 23:12 125 H 98 08/11/19 23:07 109 H 99 08/11/19 23:06 115 H 115/57 L 08/11/19 23:02 116 H 99 08/11/19 22:57 110 H 100 08/11/19 22:56 102 H 119/63 08/11/19 22:52 107 H 99 08/11/19 22:47 103 H 100 08/11/19 22:46 103 H 117/66 08/11/19 22:45 20 08/11/19 22:42 105 H 100 08/11/19 22:37 106 H 99 08/11/19 22:36 114 H 120/65 08/11/19 22:32 118 H 100 08/11/19 22:27 111 H 100 08/11/19 22:26 112 H 123/64 08/11/19 22:22 113 H 100
[2019-08-12] MEDS ORDERED: DiphenhydrAMINE HCL 50 MG/ML VIAL IV PRN (15:44)
[2019-08-12] MEDS ORDERED: MEPERIDINE HCL 50 MG/ML CARP IV PRN (15:44)
[2019-08-12] MEDS ORDERED: KETOROLAC 30 MG/ML VIAL IV PRN (15:44)
[2019-08-12] MEDS ORDERED: PROMETHAZINE HCL 25 MG in SODIUM CHLORIDE 0.9% 50 ML IV PRN (15:44)
[2019-08-12] MEDS: IBUPROFEN 600 MG TAB PO PRN ×2 (17:49→23:31)
[2019-08-12] MEDS: LACTATED RINGER'S 1,000 ML IV SCH (19:00)
[2019-08-12] MEDS ORDERED: LACTATED RINGER'S 1,000 ML IV SCH (19:45)
[2019-08-12] MEDS ORDERED: OXYCODONE/ACETAMINOPHEN 5mg/325mg TAB PO ONE (19:46)
[2019-08-12] MEDS: OXYCODONE/ACETAMINOPHEN 5mg/325mg TAB PO PRN ×2 (19:48→23:31)
[2019-08-12] MEDS ORDERED: bisacodyL 5 MG TABEC PO SCH (20:00)
[2019-08-13] MEDS: LACTATED RINGER'S 1,000 ML IV SCH (02:44)
[2019-08-13] MEDS: IBUPROFEN 600 MG TAB PO PRN ×4 (06:16→23:44)
[2019-08-13] MEDS: OXYCODONE/ACETAMINOPHEN 5mg/325mg TAB PO PRN ×4 (06:17→23:45)
[2019-08-13 06:35] LABS: Basophils # (auto) 0.01 K/uL (0-0.2); Basophils % (auto) 0.1 %; Eosinophils % (auto) 0.7 %; Hematocrit (blood only) 22.9 % (37-47); Hemoglobin 7.6 g/dL (12.0-16.0); Immature Granulocytes # (auto) 0.15 K/uL (0.00-0.02); Lymphocytes # (auto) 1.58 K/uL (1.2-3.4); Lymphocytes % (auto) 10.3 %; Mean Corpuscular Hemoglobin 29.1 pg (25-34); Mean Corpuscular Hgb Conc 33.2 g/dL (32-36); Mean Corpuscular Volume 87.7 fL (80-100); Mean Platelet Volume 10.3 fL (7.4-10.4); Monocytes % (auto) 6.5 %; Neutrophils # (auto) 12.46 K/uL (1.4-6.5); Neutrophils % (auto) 81.4 %; Platelet Count 182 K/uL (130-400); RDW Coefficient of Variation 14.8 % (11.5-14.5); RDW Standard Deviation 46.1 fL (36.4-46.3); Red Blood Count 2.61 M/uL (4.2-5.4)
[2019-08-13] MEDS: FERROUS SULFATE 325 MG TAB PO SCH (07:50)
[2019-08-13] MEDS: DOCUSATE SODIUM 100 MG CAP PO SCH ×2 (07:50→19:33)
[2019-08-13] MEDS: PRENATAL VITAMIN 1 TAB PO SCH (07:50)
[2019-08-13] MEDS: SIMETHICONE 80 MG CHEW PO SCH ×3 (07:51→19:34)
--- NOTE | 2019-08-13 08:52 | Surgery Progress Note ---
Date of Service August 13, 2019 Subjective POD#2 stable passing gas tolerating diet out of bed Physical Exam Constitutional: WD/WN, vitals as above comfortable Genitourinary: Abdomen slightly distended, soft incision clean dry and intact neg Florencia's plan for discharge Results & Data Vital Signs (Past 12 Hours) Vital Signs Temp Pulse Resp BP Pulse Ox 08/12/19 23:40 36.7 C 91 H 18 99/61 L 99
[2019-08-13] MEDS ORDERED: bisacodyL 10 MG SUPP PR PRN (21:21)
[2019-08-14 06:49] LABS: Basophils # (auto) 0.05 K/uL (0-0.2); Basophils % (auto) 0.4 %; Eosinophils # (auto) 0.25 K/uL (0-0.5); Eosinophils % (auto) 1.8 %; Hematocrit (blood only) 24.1 % (37-47); Hemoglobin 7.9 g/dL (12.0-16.0); Immature Granulocytes # (auto) 0.37 K/uL (0.00-0.02); Immature Granulocytes % (auto) 2.7 %; Lymphocytes # (auto) 1.61 K/uL (1.2-3.4); Lymphocytes % (auto) 11.8 %; Mean Corpuscular Hemoglobin 28.5 pg (25-34); Mean Corpuscular Hgb Conc 32.8 g/dL (32-36); Mean Platelet Volume 9.4 fL (7.4-10.4); Monocytes # (auto) 0.93 K/uL (0.11-0.59); Monocytes % (auto) 6.8 %; Neutrophils % (auto) 76.5 %; Platelet Count 222 K/uL (130-400); RDW Coefficient of Variation 14.5 % (11.5-14.5); RDW Standard Deviation 45.9 fL (36.4-46.3); Red Blood Count 2.77 M/uL (4.2-5.4); White Blood Count 13.61 K/uL (4.8-10.8)
--- NOTE | 2019-08-14 06:52 | Surgery Progress Note ---
Date of Service August 14, 2019 Subjective Doing well passing gas tolerating diet much better today Physical Exam Constitutional: WD/WN, vitals as above comfortable abdomen soft and non- tender less distende fundus firm no edema neg Florencia's for d/c Results & Data Vital Signs (Past 12 Hours) Vital Signs Temp Pulse Pulse Resp BP Pulse Ox 08/14/19 03:45 36.8 C 83 16 110/72 98 08/13/19 23:00 36.9 C 89 18 109/74 100 08/13/19 19:20 37.0 C 96 H 18 117/69 100 Laboratory Results Laboratory Results - last 72 hr 08/11/19 08/11/19 08/11/19 08:14 08:14 08:35 WBC 10.87 H RBC 4.15 L Hgb 11.9 L Hct 35.5 L MCV 85.5 MCH 28.7 MCHC 33.5 RDW Std Deviation 43.7 RDW Coeff of Kimberley 14.2 Plt Count 218 MPV 10.8 H Immature Gran % (Auto) Neut % (Auto) Lymph % (Auto) [place] % (Auto) Eos % (Auto) Baso % (Auto) Immature Gran # (Auto) Neut # (Auto) Lymph # (Auto) [place] # (Auto) Eos # (Auto) Baso # (Auto) PT INR APTT PTT Ratio Fibrinogen POC Glucose 80 Urine Color Urine Appearance Urine pH Ur Specific [place] Urine Protein Urine Glucose (UA) Urine Ketones Urine Blood Urine Nitrite Urine Bilirubin Urine Urobilinogen Ur Leukocyte Esterase Urine RBC Urine WBC Ur Epithelial Cells Calcium Oxalate Crystal Urine Bacteria Hepatitis C Antibody Neg 08/11/19 08/11/19 08/11/19 17:48 20:16 20:16 WBC 24.68 H D RBC 4.20 Hgb 12.1 Hct 36.5 L MCV 86.9 MCH 28.8 MCHC 33.2 RDW Std Deviation 44.8 RDW Coeff of Kimberley 14.3 Plt Count 243 MPV 11.1 H Immature Gran % (Auto) 1.1 Neut % (Auto) 87.4 Lymph % (Auto) 4.9 [place] % (Auto) 6.5 Eos % (Auto) 0.0 Baso % (Auto) 0.1 Immature Gran # (Auto) 0.28 H Neut # (Auto) 21.55 H Lymph # (Auto) 1.21 [place] # (Auto) 1.61 H Eos # (Auto) 0.00 Baso # (Auto) 0.03 PT 10.0 INR 0.9 APTT 26.8 PTT Ratio 1.0 Fibrinogen 427 H POC Glucose 105 H Urine Color Urine Appearance Urine pH Ur Specific [place] Urine Protein Urine Glucose (UA) Urine Ketones Urine Blood Urine Nitrite Urine Bilirubin Urine Urobilinogen Ur Leukocyte Esterase Urine RBC Urine WBC Ur Epithelial Cells Calcium Oxalate Crystal Urine Bacteria Hepatitis C Antibody 08/11/19 08/12/19 08/13/19 22:50 05:57 05:58 WBC 17.76 H 15.30 H RBC 3.13 L 2.61 L Hgb 9.1 L D 7.6 L Hct 26.9 L 22.9 L MCV 85.9 87.7 MCH 29.1 29.1 MCHC 33.8 33.2 RDW Std Deviation 44.9 46.1 RDW Coeff of Kimberley 14.4 14.8 H Plt Count 177 182 MPV 10.6 H 10.3 Immature Gran % (Auto) 0.6 1.0 Neut % (Auto) 85.8 81.4 Lymph % (Auto) 7.3 10.3 [place] % (Auto) 6.1 6.5 Eos % (Auto) 0.1 0.7 Baso % (Auto) 0.1 0.1 Immature Gran # (Auto) 0.10 H 0.15 H Neut # (Auto) 15.25 H 12.46 H Lymph # (Auto) 1.30 1.58 [place] # (Auto) 1.09 H 1.00 H Eos # (Auto) 0.01 0.10 Baso # (Auto) 0.01 0.01 PT INR APTT PTT Ratio Fibrinogen POC Glucose Urine Color Yellow Urine Appearance Cloudy A Urine pH 5.5 Ur Specific [place] >= 1.030 Urine Protein 1+ H Urine Glucose (UA) Negative Urine Ketones 3+ H Urine Blood 3+ H Urine Nitrite Negative Urine Bilirubin Negative Urine Urobilinogen Negative Ur Leukocyte Esterase Trace H Urine RBC >30 H Urine WBC 10-30 H Ur Epithelial Cells 0-5 Calcium Oxalate Crystal Present A Urine Bacteria 1+ H Hepatitis C Antibody 08/14/19 06:39 WBC 13.61 H RBC 2.77 L Hgb 7.9 L Hct 24.1 L MCV 87.0 MCH 28.5 MCHC 32.8 RDW Std Deviation 45.9 RDW Coeff of Kimber[place] 14.5 Plt Count 222 MPV 9.4 Immature Gran % (Auto) 2.7 Neut % (Auto) 76.5 Lymph % (Auto) 11.8 [place] % (Auto) 6.8 Eos % (Auto) 1.8 Baso % (Auto) 0.4 Immature Gran # (Auto) 0.37 H Neut # (Auto) 10.40 H Lymph # (Auto) 1.61 [place] # (Auto) 0.93 H Eos # (Auto) 0.25 Baso # (Auto) 0.05 PT INR APTT PTT Ratio Fibrinogen POC Glucose Urine Color Urine Appearance Urine pH Ur Specific [place] Urine Protein Urine Glucose (UA) Urine Ketones Urine Blood Urine Nitrite Urine Bilirubin Urine Urobilinogen Ur Leukocyte Esterase Urine RBC Urine WBC Ur Epithelial Cells Calcium Oxalate Crystal Urine Bacteria Hepatitis C Antibody
[2019-08-14 07:49] LABS: RBC Morphology Unremarkable
[2019-08-14] MEDS: PRENATAL VITAMIN 1 TAB PO SCH (07:53)
[2019-08-14] MEDS: IBUPROFEN 600 MG TAB PO PRN ×2 (07:54→14:11)
[2019-08-14] MEDS: SIMETHICONE 80 MG CHEW PO SCH ×3 (07:54→13:23)
[2019-08-14] MEDS: OXYCODONE/ACETAMINOPHEN 5mg/325mg TAB PO PRN ×2 (07:54→14:12)
[2019-08-14] MEDS: FERROUS SULFATE 325 MG TAB PO SCH (07:55)
[2019-08-14] MEDS: DOCUSATE SODIUM 100 MG CAP PO SCH (07:55)
--- NOTE | 2019-08-19 23:58 | Discharge Summary (DS) ---
DETAILS OF ADMISSION: The patient is a 39-year-old G2, P1-0-0-1 at 40 weeks and 3 days of gestation. She was admitted on 08/11/2019 for induction of labor for postdates, and she had suspected macrosomia, polyhydramnios and her ultrasound showed EFW of 9 pounds 2 ounces. After discussion, the patient decided for trial of vaginal . She received Cervidil for cervical ripening, which gave her regular contractions and then it was removed in the afternoon. Her cervix changed from 1 cm to 4-5 cm, 80%, -2 in the afternoon. She progressed to 9 cm and 0 station, found to have active vaginal bleeding which was suspicious for abruption of placenta and she was remote from delivery. Decision was made for imminent delivery. She signed the informed consent and was taken to OR for emergency . She delivered a viable female infant. Apgars were 8/9 and her surgery was uncomplicated. See dictated op note for details. On postop period, the patient was doing well. Vital signs stable, afebrile. Urine output was good. On postop day #1, the patient was doing well. Vital signs were stable, afebrile. She was passing gas. Postop day #2, the patient was doing well. Vital signs stable, afebrile. Incision was clean, dry, and intact. Abdomen was soft, nontender. She was tolerating regular diet, passing gas. On postop day #3, the patient was doing well. Vital signs stable, afebrile. Physical exam was unremarkable. Her H and H was 9.1/26.9 on postop day #1 and it was 7.6/22.9 on postop day #2and the repeat was 7.9/24.1 and white count had also decreased. She was discharged home on postop day #3. Discharge instructions were given. Prescriptions were written. She is to be seen in the office in a week. All questions were answered. IRAM
== END 2019-08-14 14:25 | disposition home or self-care (01) | DRG 788 ==
LOC: 4S1 07:34 → 4S2 23:40